=== PATIENT | female | born 1955 | race Caucasian/White ===

== ENCOUNTER → 2021-02-02 | Outpatient (CLI) | payer MEDICARE, OTHER, SELFPAY ==
--- NOTE | 2021-02-02 | BRBX_PTH ---
PATIENT: NOVA MRAIEE LOC: [facility] U#:[id number] AGE/SX: 65/F ROOM: RE02/02/[address]: Dr. Howard Webb MD : 1955 BED: DIS: 02/02/2021 SPEC #: [id number] RECD: 02/02/21 11:02 STATUS: CALEB HE #: [id number] MAYURI: 02/02/21 00:[address]: Howard Webb DEPT: SURGICAL PATHOLOGY RECD BY: Janina Sheridan ENTERED: 02/02/21 12:47 SP TYPE: BREAST BX OTHR DR: John Stokes Tissues: Left breast, NOS Procedures: Surgery Specimen Level IV HEADER OPERATION: Left breast biopsy PRE-OP DIAGNOSIS: Left breast mass TISSUE SUBMITTED: Left breast tissue MICROSCOPIC DIAGNOSIS Left breast mass, core biopsy: Fragments of benign lymph node tissue. See comment. KEELY:mark anthony 02/03/2021 COMMENT The findings may represent intramammary lymph node. Breast tissue is not identified. Correlation with clinical, radiologic findings and appropriate follow up are necessary. Immunohistochemistry ([id number]) supports the above diagnosis. MICROSCOPIC DESCRIPTION Slides are reviewed. GROSS DESCRIPTION Received in fixative is one container labeled with the patient name and designated left breast. The specimen consists of multiple elongated fragments of vee-yellow fibroadipose tissue that in aggregate measure 1.5 x 0.5 x 0.1 cm. The entire specimen is submitted in one cassette. / SJ:mark anthony 02/02/21 TC:5 CPT: 47135
--- NOTE | 2021-02-02 | IMM_PTH ---
PATIENT: NOVA MARIEE LOC: [facility] U#:[id number] AGE/SX: 65/F ROOM: RE02/02/[address]: Dr. Howard Webb MD : 1955 BED: DIS: 02/02/2021 SPEC #: [id number] RECD: 02/03/21 11:48 STATUS: CALEB REQ #: [id number] MAYURI: 02/02/21 00:[address]: Howard Webb DEPT: IMMUNOHISTOCHEMISTRY RECD BY: Michelle Padgett ENTERED: 02/03/21 11:53 SP TYPE: IMMUNO OTHR DR: John Stokes Tissues: Left breast, NOS Procedures: BCL-2 (add) CD20 (add) CD45 (add) CD5 (add) CD79A (add) CD3 (initial) PHYSICIAN & INSTITUTION [place] [id number] SPECIMEN INFORMATION: Tissue Source: Left breast Clinical Info: Left breast mass Specimen Number: [id number] CPT code: 09547, 24679 x5 METHODOLOGY: Deparaffinized sections of prefer/formalin-fixed tissue or PAP/DQ stained slides are incubated with monoclonal/polyclonal antibodies/oligonucleotide probes. Localization is made via biotin free immunoperoxidase method. Appropriate controls are performed and reacted as expected. Results on target cell population are indicated in the following table: RESULTS: ANTIBODY / CLONE RESULT CD3 (PS1) positive CD5 (SP10) positive CD20 (L26) positive CD45 (RP2/18) positive CD79a (11E3) positive BCL-2 (bcl-2/100/D5) negative (in germinal center) These tests were developed and their performance characteristics determined by [facility]. They may not have been cleared or approved by the [place]. Food and Drug Administration. The FDA has determined that such clearance or approval is not necessary. The above immunohistochemical/dualISH markers are ordered and reviewed by the Pathologist. INTERPRETATION: Left breast, biopsy: Consistent with benign lymph node tissue. KEELY:mark anthony 02/04/2021
== END | disposition home or self-care (01) ==
LOC: LABSPEC 11:19
PROVIDERS: PCP Family Medicine; Referring Provider Surgery; Visit Provider Surgery
DX: N63.20 Unspecified lump in the left breast, unspecified quadrant (principal)
CPT/HCPCS: 88305; 88341; 88342